=== PATIENT | female | born 1970 | race Caucasian/White ===

== ENCOUNTER 2016-11-20 05:01 | Day surgery (SDC) | payer BC ==
[2016-11-18 13:03] LABS: BASOPHILS 0.2 % (0-2); EOSINOPHILS 1.6 % (0-7); HEMATOCRIT 40.1 % (36.0-48.0); HEMOGLOBIN 13.4 g/dL (12-16); IMMATURE GRANULOCYTES 0.2 % (0-5); LYMPHOCYTES 28.8 % (15-50); MCH 29.8 pg (26.0-34.0); MCHC 33.4 g/dL (31.0-37.0); MCV 89.3 fL (80.0-100.0); MEAN PLATELET VOLUME 9.5 fL (7.4-10.4); MONOCYTES 7.5 % (2-11); NEUTROPHILS 61.7 % (40-80); RBC 4.49 10x6/uL (4.00-5.40); RDW 13.3 % (11.5-14.5)
[2016-11-18 13:10] LABS: PLATELET COUNT 350 10x3/uL (130-400)
[2016-11-18 13:33] LABS: CALC OSMOLALITY 271 mosm/kg (275-300); CALCIUM 9.4 mg/dL (8.5-10.1); CARBON DIOXIDE 26.9 mmol/L (21.0-32.0); CHLORIDE - SERUM 102 mmol/L (98-107); CREATININE - SERUM 0.7 mg/dL (0.6-1.3); GLUCOSE 84 mg/dL (74-106); POTASSIUM - SERUM 3.7 mmol/L (3.5-5.1); SODIUM 137 mmol/L (136-145); UREA NITROGEN 10 mg/dL (7-18); eGFR NON AFRICAN AMERICAN > 90 mL/min (90-120)
[~2016-11-20 05:01] MED LIST: AMBIEN10 MG PO; BUPROPN HCL; GABITRIL4 MG PO; HYDROCODONE-APA1 TAB PO; LEVOTHYROXINE150 MCG PO; PRILOSEC10 M1 PO; ZANAFLEX6 MG PO
[2016-11-20] MEDS ORDERED: AMBIEN10 MG PO (06:28)
[2016-11-20 06:29] VITALS: BP 96/61; BMI 28.4
[2016-11-20 06:41] LABS: HCG URINE NEGATIVE (NEGATIVE)
--- NOTE | 2016-11-20 09:07 | HP ---
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 DRUG ALLERGIES: DEMEROL. CURRENT MEDICATIONS: Ambien, bupropion, hydrocodone, levothyroxine, omeprazole, tizanidine, and zolpidem. PREVIOUS SURGERIES: Appendectomy and cholecystectomy. HABITS: Nonsmoker. REVIEW OF SYSTEMS: Negative. PHYSICIAL EXAMINATION: GENERAL: Well-developed, well-nourished female, in no distress. HEENT: Unremarkable. LUNGS: Clear. HEART: Regular rate and rhythm. PELVIC: Current and deferred for anesthesia. EXTREMITIES: No cyanosis, clubbing, or edema. NEUROLOGIC: Grossly intact. 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 PLAN: LEEP excision of the ectocervix and endocervical curettage in a.m. I have discussed the planned procedure with the patient as well as risks and potential benefits. TRANSINT:[id number] Voice Confirmation ID: [id number] DOCUMENT ID: [id number] WING SAPP MD at [id number] CC: [id number] DICTATION DATE: 11/19/16 1559 RISK ASSESSOR: 11/19/16 1619 [id number] [place] [address]
--- NOTE | 2016-11-20 15:34 | NUR ---
1215--PT VOIDS, IV DC'D. ROCIO PANTOJA 1241--DISCHARGE INSTRUCTIONS GIVEN, PT VERBALIZES UNDERSTANDING. PT OFF UNIT VIA WC. ROCIO PANTOJA
== END 2016-11-20 12:45 | disposition home or self-care (01) ==
LOC: D.OPS 05:01
PROVIDERS: Obstetrics & Gynecology
DX: R87.619 Unspecified abnormal cytological findings in specimens from cervix uteri (principal); Z87.891 Personal history of nicotine dependence; K21.9 Gastro-esophageal reflux disease without esophagitis; E03.9 Hypothyroidism, unspecified; J06.9 Acute upper respiratory infection, unspecified; Z01.812 Encounter for preprocedural laboratory examination